=== PATIENT | female | born 2000 | race African-American/Black ===

== ENCOUNTER 2020-09-05 10:12 | Emergency (ER) | payer MEDICAID ==
[~2020-09-05] VITALS: Ht 167.6 cm; Wt 90.9 kg
[2020-09-05 11:45] VITALS: BP 120/56
== END 2020-09-05 12:30 | disposition home or self-care (01) ==
LOC: EMS 10:22
DX: J31.0 Chronic rhinitis (principal)
CPT/HCPCS: 99281; 99282; Z7502